=== PATIENT | female | born 1990 | race Two or more races ===

== ENCOUNTER 2016-11-20 21:59 | Emergency (ER) | payer OTHER ==
[~2016-11-20] VITALS: Ht 157.5 cm; Wt 82.2 kg
[2016-11-20] MEDS ORDERED: KETOROLAC 30 MG/1 ML ONE (23:14)
[2016-11-20 23:26] VITALS: BP 107/60
[2016-11-20] MEDS ORDERED: KETOROLAC 30 MG/1 ML IVPush ONE (23:30)
== END 2016-11-20 23:29 | disposition home or self-care (01) ==
LOC: ED 23:28
DX: R09.1 Pleurisy (principal); R05 Cough
CPT/HCPCS: 93005; 96374; 99284; J1885

== ENCOUNTER → 2020-06-16 | Outpatient (CLI) | payer OTHER | END | disposition home or self-care (01) | LOC: CFH 10:22 | PROVIDERS: ATTEND Obstetrics & Gynecology | DX: N63.10 Unspecified lump in the right breast, unspecified quadrant (principal); R92.2 Inconclusive mammogram | CPT/HCPCS: 76642 ==